=== PATIENT | female | born 1970 | race American Indian/Alaskan Native ===

== ENCOUNTER 2021-08-19 20:04 | Emergency (ER) | payer SELFPAY ==
--- NOTE | 2021-08-20 00:37 | XRay Report ---
CHEST 1 VIEW INDICATION / CLINICAL INFORMATION: syncope. COMPARISON: None available. FINDINGS: SUPPORT DEVICES: None. HEART / MEDIASTINUM: No significant abnormality. LUNGS / PLEURA: The lungs are clear. No pneumothorax. ADDITIONAL FINDINGS: No significant additional findings. IMPRESSION: 1. No active cardiopulmonary disease. Signer Name: Ceasar Groves II, MD Signed: 08/20/2021 12:32 AM Workstation Name: [email or web address] [id number]
[2021-08-20 01:04] LABS: Basophils % (Auto) 0.6 % (0.0-1.8); Eosinophils % (Auto) 0.3 % (0.0-4.3); Hematocrit 38.3 % (30.3-42.9); Hemoglobin 12.6 gm/dl (10.1-14.3); Lymphocytes # (Auto) 1.9 K/mm3 (1.2-5.4); Lymphocytes % (Auto) 26.4 % (13.4-35.0); Mean Corpuscular HGB Conc 33 % (30-34); Mean Corpuscular Volume 77 fl (79-97); Monocytes # (Auto) 0.4 K/mm3 (0.0-0.8); Monocytes % (Auto) 5.8 % (0.0-7.3); Platelet Count 189 K/mm3 (140-440); Red Blood Count 4.99 M/mm3 (3.65-5.03); Red Cell Distribution Width 15.5 % (13.2-15.2)
[2021-08-20 01:26] LABS: Alanine Aminotransferase 11 units/L (7-56); Albumin 4.2 g/dL (3.9-5); BUN/Creatinine Ratio 10; Blood Urea Nitrogen 10 mg/dL (7-17); Calcium 9.9 mg/dL (8.4-10.2); Hemolysis Index 7
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
--- NOTE | 2021-08-20 02:58 | Cat Scan Report ---
CT CERVICAL SPINE WITHOUT CONTRAST INDICATION / CLINICAL INFORMATION: fall hitting head now with syncope. TECHNIQUE: Axial CT images were obtained through the cervical spine. Sagittal and coronal reformatted images were produced. All CT scans at this location are performed using CT dose reduction for ALARA by means of automated exposure control. COMPARISON: None available. FINDINGS: MANDIBLE: No significant abnormality of the visualized mandible or TMJs. SKULL BASE: No significant abnormality of the skull base. CRANIOCERVICAL JUNCTION: No significant abnormality of the craniocervical junction. ALIGNMENT: No significant abnormality of alignment. VERTEBRAL BODIES: Vertebral body heights fairly uniform throughout. DISK SPACES: Disk spaces are fairly uniform throughout. FACET JOINTS: No significant abnormality of facet articulations. STENOSIS BY LEVEL: None. CENTRAL CANAL: No significant central stenosis. SOFT TISSUES: No significant abnormality of soft tissues or musculature. THYROID: No significant abnormality. UPPER CHEST: No significant abnormality of the visualized chest. ADDITIONAL FINDINGS: None. IMPRESSION: 1. No acute cervical spine injury. No significant degenerative changes. Signer Name: Ceasar Groves II, MD Signed: 08/20/2021 2:53 AM Workstation Name: [id number]
--- NOTE | 2021-08-20 02:59 | Cat Scan Report ---
CT HEAD WITHOUT CONTRAST INDICATION / CLINICAL INFORMATION: fall hitting head now with syncope. TECHNIQUE: CT head was performed without administration of intravenous contrast. All CT scans at this location are performed using CT dose reduction for ALARA by means of automated exposure control. COMPARISON: None available. FINDINGS: CEREBRAL PARENCHYMA: Moderate motion artifact is demonstrated. No large regions of hemorrhage are pre sent. No gross midline shift. HEMORRHAGE: See above EXTRA-AXIAL SPACES: Normal in size and morphology for the patient's age. VENTRICULAR SYSTEM: Normal in size and morphology for the patient's age. MIDLINE SHIFT / HERNIATION: None. CEREBELLUM / BRAINSTEM: No significant abnormality. ORBITS: Normal as visualized. SOFT TISSUES: No significant abnormality. SKULL: No significant abnormality. PARANASAL SINUSES / MASTOID AIR CELLS: Normal as visualized. ADDITIONAL FINDINGS: None. IMPRESSION: 1. Allowing for the degree of motion, no acute intracranial pathology. Signer Name: Ceasar Groves II, MD Signed: 08/20/2021 2:58 AM Workstation Name: [id number]
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
--- NOTE | 2021-08-20 06:48 | Cat Scan Report ---
CT CHEST WITH CONTRAST INDICATION / CLINICAL INFORMATION: syncope. TECHNIQUE: Axial CT images were obtained through the chest after 100 cc Omnipaque [address] l [address] scans at this location are performed using CT dose reduction for ALARA by means of automated exp osure control. COMPARISON: CT abdomen and pelvis same date. FINDINGS: CHEST LOWER NECK: Soft tissues of the lower neck including the thyroid demonstrate no significant abnormali ty evidence of acute pathology. THORACIC AORTA: No significant abnormality. PULMONARY ARTERY: Inadequate opacification to evaluate for pulmonary artery embolus. Pulmonary artery is normal in size. HEART: Borderline to mild cardiomegaly. CORONARY ARTERY CALCIFICATION: Absent -- None. MEDIASTINUM / STAR: No significant abnormality. ESOPHAGUS: No significant abnormality. LYMPH NODES: No adenopathy demonstrated within the axilla, star, or mediastinum. LUNGS: No acute air space or interstitial disease. PLEURA: No pleural effusion. No pneumothorax. THORACIC SOFT TISSUES: No significant abnormality of the chest wall or upper thoracic musculature. OSSEOUS STRUCTURES: No significant abnormality of included osseous structures. UPPER ABDOMEN: Please see comparison study for findings within the abdomen and pelvis. ADDITIONAL CHEST FINDINGS: None. IMPRESSION: 1. No acute findings. Signer Name: Ceasar Groves II, MD Signed: 08/20/2021 6:44 AM Workstation Name: [id number]
[2021-08-20 07:36] VITALS: BP 149/88
--- NOTE | 2021-08-21 09:03 | Electrocardiograph Report ---
[facility] Test Date: 2021-08-20 Test Time: 02:54:13 Pat Name: MACY MANSFIELD Department: Room: Gender: F [facility] Agent: GINA : [id number] Requested By: SPENCER FLORES Order Number: [id number] Reading MD: Ravin Benz Measurements Intervals [place] Rate: 65 P: 54 AR: 184 QRS: 48 QRSD: 97 T: -1 QT: 412 QTc: 430 Interpretive Statements Sinus rhythm Probable left atrial enlargement Left ventricular hypertrophy. nonspecific st-t No previous ECG available for comparison Electronically Signed On 08-21-2021 9:03:27 EDT by Ravin Benz
== END 2021-08-20 07:36 | disposition home or self-care (01) ==
LOC: ED 20:04
DX: S16.1XXA Strain of muscle, fascia and tendon at neck level, initial encounter (principal); S09.90XA Unspecified injury of head, initial encounter; S30.1XXA Contusion of abdominal wall, initial encounter; Z98.890 Other specified postprocedural states; Z79.899 Other long term (current) drug therapy; Y04.8XXA Assault by other bodily force, initial encounter; Y93.89 Activity, other specified; Y92.89 Other specified places as the place of occurrence of the external cause; Y99.8 Other external cause status
CPT/HCPCS: 36415; 70450; 71046; 71260; 72125; 74177; 80053; 84443; 84484; 84703; 85025; 93005; 99284; Q9967

== ENCOUNTER 2021-08-21 05:06 | Emergency (ER) | payer SELFPAY ==
[2021-08-21] MEDS ORDERED: IBUPROFEN 800 MG TAB PO ONE (07:04)
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
[2021-08-21] MEDS ORDERED: IBUPROFEN 800 MG TAB ONE ×2 (07:29)
[2021-08-21 08:16] VITALS: BP 136/80
== END 2021-08-21 08:16 | disposition home or self-care (01) ==
LOC: ED 05:06
DX: R51.9 Headache, unspecified (principal)
CPT/HCPCS: 99282